=== PATIENT | male | born 2000 | race Caucasian/White ===

== ENCOUNTER 2025-01-22 21:00 | Emergency (ER) | payer MEDICAID ==
[~2025-01-22] VITALS: Ht 165.1 cm; Wt 64.0 kg
[2025-01-22 21:03] VITALS: TEMP 36.6; O2SAT 99
[2025-01-22 23:27] LABS: BASOPHILS % 0.1 % (0.0-2.0); EOSINOPHILS % 0.1 % (0.0-5.0); HEMATOCRIT. 45.3 % (42.0-52.0); HEMOGLOBIN. 15.1 g/dL (14.0-18.0); LYMPHOCYTES % 10.5 % (20.0-50.0); MEAN PLATELET VOLUME 7.7 fl (7.4-10.4); MONOCYTES % 2.7 % (2.0-8.0); NEUTROPHILS % 86.6 % (40.0-76.0); PLATELET 256 x1000/uL (130-400); RED BLOOD CELL COUNT 4.91 mill/uL (4.7-6.1); RED CELL DISTRIBUTION WIDTH 13.4 % (11.6-14.6)
[2025-01-22 23:35] LABS: CREATININE 0.9 mg/dL (0.6-1.3); UREA NITROGEN BLOOD 10 mg/dL (9-23)
[2025-01-22 23:36] LABS: ETHANOL BLOOD 204 mg/dL (<10)
[2025-01-23 01:34] VITALS: BP 132/89; PULSE 83; RESP 18; O2SAT 98
== END 2025-01-23 01:37 | disposition home or self-care (01) ==
LOC: ER 21:00
DX: F10.129 Alcohol abuse with intoxication, unspecified (principal); Y90.9 Presence of alcohol in blood, level not specified
CPT/HCPCS: 36415; 80048; 80320; 85025; 99284; G0480